=== PATIENT | male | born 1990 | race Caucasian/White ===

== ENCOUNTER 2020-02-17 10:05 | Emergency (ER) | payer OTHER ==
[2020-02-17 10:16] VITALS: TEMP 97.9; BMI 25.8
[2020-02-17] MEDS ORDERED: MAG HYDROX/ALH/SMC/DPHA/LIDO 240 ML MOUTHWASH MM ONE (10:51)
[2020-02-17] MEDS ORDERED: FAMOTIDINE 20 MG/50 ML IVPB 20 MG/50 ML MG IVPB ONE ×2 (10:51→10:55)
[2020-02-17] MEDS ORDERED: SODIUM CHLORIDE 1,000 ML IV STA (10:51)
--- NOTE | 2020-02-17 11:02 | PDOC ---
History of Present Illness - General Chief Complaint: Pain Stated Complaint: SORE THROAT Time Seen by Provider: 02/17/20 10:37 History Source: Patient - History of Present Illness Timing/Duration: reports: other (2 weeks ago) Past History - Medical History Allergies/Adverse Reactions: Allergies Allergy/AdvReac Type Severity Reaction Status Date / Time No Known Allergies Allergy Verified 02/17/20 10:19 Home Medications: Ambulatory Orders Famotidine [Pepcid] 20 mg PO BID #28 tablet 02/17/20 Famotidine [Pepcid] 20 mg PO BID #28 tablet 02/17/20 COPD: No GI Disorders: Yes (Ulcerative colitis) - Psycho-Social/Smoking History Smoking History: Never smoked Have you smoked in the past 12 months: No - Substance Abuse Hx (Audit-C & DAST Scrn) How often the patient has a drink containing alcohol: Never Score: In Men: 4 or > Positive; In Women: 3 or > Positive: 0 Screen Result (Pos requires Nsg. Audit-10AR): Negative In the last yr the pt used illegal drug/Rx for NonMed reason: No Score: Yes response is considered Positive: 0 Screen Result (Positive result requires Nsg. DAST-10): Negative Review of Systems - Review of Systems Constitutional: No: Chills, Fever ABD/GI: Yes: Blood Streaked Bowels, Diarrhea, Abdominal cramping. No: Nausea, Vomiting *Physical Exam - Vital Signs Last Vital Signs Temp Pulse Resp BP Pulse Ox 97.9 F 79 16 121/70 100 02/17/20 10:11 02/17/20 10:11 02/17/20 10:11 02/17/20 10:11 02/17/20 10:11 - Physical Exam General Appearance: Yes: Appropriately Dressed. No: Apparent Distress HEENT: positive: Normal Voice Neck: positive: Supple Respiratory/Chest: negative: Respiratory Distress Gastrointestinal/Abdominal: positive: Normal Bowel Sounds, Tender (minimal ttp diffusely to lower abd), Soft. negative: Distended, Guarding, Rebound Musculoskeletal: negative: CVA Tenderness Integumentary: positive: Dry, Warm Neurologic: positive: Fully Oriented, Alert, Normal Mood/Affect ED Treatment Course - LABORATORY CBC & Chemistry Diagram: 02/17/20 11:00 02/17/20 11:00 - RADIOLOGY Radiology Studies Ordered: Category Date Time Status ABDOMEN & PELVIS CT WITH CONTR [CT] Stat CT Scan 02/17/20 10:43 Ordered Medical Decision Making - Medical Decision Making 02/17/20 10:57 29-year-old male diagnosed with ulcerative colitis 4 years ago on endoscopy per patient, has never been on meds, no surgeries other than remote appy, follows w/ GI in the [place], GERD on omeprazole daily, here with 2 weeks of mostly constant lower abdominal pain with diarrhea, at times mixed with bright red blood and mucus. Also reports some dysphasia that started at some point consistent with his GERD but states omeprazole no longer relieving symptoms. Denies any nausea vomiting fever or chills see exam UC w/ lower abd pain w/ BRBPR Only surgery is remote appy Only meds is omeprazole currently Stable w/ minimal ttp to lower abd diffusely -sx control -labs -CT -anticipate dc w/ GI f/u 02/17/20 13:[address] with signs consistent with patient's known h/o IBD. On reassessment patient reports that his GERD symptoms improved with meds here. States he feels well enough to go home and will contact his GI doctor for fu rther evaluation and management Discharge - Discharge Information Problems reviewed: Yes Clinical Impression/Diagnosis: BRBPR (bright red blood per rectum) Abdominal pain Qualifiers: Abdominal location: unspecified location Qualified Code(s): R10.9 - Unspecified abdominal pain Condition: Improved Disposition: HOME - Additional Discharge Information Prescriptions: Famotidine [Pepcid] 20 mg PO BID #28 tablet Famotidine [Pepcid] 20 mg PO BID #28 tablet - Follow up/Referral Referrals: Serafin Mayfield [Primary Care Provider] - - Patient Discharge Instructions Patient Printed Discharge Instructions: Ulcerative Colitis Additional Instructions: Your labs were normal today and your CAT scan shows findings consistent with your history of ulcerative colitis Please make an appointment with your GI doctor for further evaluation and management If your symptoms worsen, return to the ER - Post Discharge Activity
[2020-02-17 11:29] LABS: BASO % 1.2 % (0-2.0); EOS % 9.7 % (0-4.5); HEMATOCRIT 48.4 % (35.4-49); HEMOGLOBIN 16.2 GM/dL (11.7-16.9); LYMPH % 35.2 % (8-40); MCH 27.7 pg (25.7-33.7); MCHC 33.4 g/dl (32.0-35.9); MEAN CELL VOLUME 82.9 fl (80-96); MONO % 11.1 % (3.8-10.2); NEUT % 42.8 % (42.8-82.8); PLATELET COUNT 272 K/MM3 (134-434); RBC 5.84 M/mm3 (4.00-5.60); WHITE BLOOD COUNT 5.8 K/mm3 (4.0-10.0)
[2020-02-17 11:53] LABS: ALBUMIN 4.1 g/dl (3.4-5.0); BILIRUBIN,TOTAL 0.9 mg/dL (0.2-1); BLOOD UREA NITROGEN 16.9 mg/dL (7-18); CALCIUM 9.5 mg/dL (8.5-10.1); CREATININE 1.1 mg/dL (0.55-1.3); TOT PROT 8.7 g/dl (6.4-8.2)
[2020-02-17 13:10] VITALS: BP 119/73; PULSE 74
== END 2020-02-17 13:10 | disposition home or self-care (01) ==
LOC: JER 10:05
PROC: 3E033NZ Introduction of Analgesics, Hypnotics, Sedatives into Peripheral Vein, Percutaneous Approach (ICD-10-PCS; principal; 2020-02-17)
PROC: 3E0337Z Introduction of Electrolytic and Water Balance Substance into Peripheral Vein, Percutaneous Approach (ICD-10-PCS; 2020-02-17)
DX: K62.5 Hemorrhage of anus and rectum (principal); R10.9 Unspecified abdominal pain
CPT/HCPCS: 36415; 74177-TC; 80053; 83690; 85025; 99285-25; Q9967

== ENCOUNTER 2020-04-19 19:08 | Emergency (ER) | payer OTHER ==
[2020-04-19 19:40] VITALS: BP 127/86; PULSE 85; TEMP 97.9; BMI 24.3
[2020-04-19] MEDS ORDERED: ONDANSETRON 4 MG/2 ML VIAL IVPUSH ONE (21:06)
[2020-04-19] MEDS ORDERED: KETOROLAC TROMETHAMINE 15 MG/ML VIAL IVPUSH ONE (21:06)
[2020-04-19] MEDS ORDERED: ONDANSETRON 4 MG/2 ML VIAL ONE (21:16)
[2020-04-19] MEDS ORDERED: KETOROLAC TROMETHAMINE 15 MG/ML VIAL ONE (21:16)
[2020-04-19 21:42] LABS: BASO % 0.9 % (0-2.0); EOS % 1.8 % (0-4.5); HEMATOCRIT 47.3 % (35.4-49); HEMOGLOBIN 15.4 GM/dL (11.7-16.9); LYMPH % 8.9 % (8-40); MCH 27.2 pg (25.7-33.7); MCHC 32.6 g/dl (32.0-35.9); MEAN CELL VOLUME 83.5 fl (80-96); MEAN PLT VOLUME 8.4 fl (7.5-11.1); MONO % 6.6 % (3.8-10.2); NEUT % 81.8 % (42.8-82.8); PLATELET COUNT 255 K/MM3 (134-434); RBC 5.66 M/mm3 (4.00-5.60); RDW 13.2 % (11.9-15.9); WHITE BLOOD COUNT 9.7 K/mm3 (4.0-10.0)
[2020-04-19 21:59] LABS: POTASSIUM 3.5 mmol/L (3.5-5.1)
[2020-04-19 22:02] LABS: ALBUMIN 4.4 g/dl (3.4-5.0); CALCIUM 9.3 mg/dL (8.5-10.1)
[2020-04-19 22:03] LABS: BLOOD UREA NITROGEN 16.5 mg/dL (7-18)
[2020-04-19 22:06] LABS: CREATININE 1.5 mg/dL (0.55-1.3)
[2020-04-19 22:07] LABS: BILIRUBIN,TOTAL 0.8 mg/dL (0.2-1); TOT PROT 8.4 g/dl (6.4-8.2)
[2020-04-19 23:47] LABS: EPI CELLS 7 /uL (0-25.1); HYALINE CASTS 1 /uL (0-3.1); URINE APPEARANCE CLEAR; URINE BACTERIA 33 /uL (0-1359); URINE BILIRUBIN NEGATIVE (NEGATIVE); URINE COLOR YELLOW; URINE GLUCOSE (UA) NEGATIVE (NEGATIVE); URINE KETONE NEGATIVE (NEGATIVE); URINE LEUK ESTERASE NEGATIVE (NEGATIVE); URINE NITRITE NEGATIVE (NEGATIVE); URINE PROTEIN TRACE (NEGATIVE); URINE RBC 146 /uL (0-23.9); URINE UROBILINOGEN 0.2 mg/dL (0.2-1.0); URINE WBC 8 /uL (0-25.8)
== END 2020-04-20 00:25 | disposition home or self-care (01) ==
LOC: JER 19:08
PROC: 3E0333Z Introduction of Anti-inflammatory into Peripheral Vein, Percutaneous Approach (ICD-10-PCS; principal; 2020-04-19)
PROC: 3E033GC Introduction of Other Therapeutic Substance into Peripheral Vein, Percutaneous Approach (ICD-10-PCS; 2020-04-19)
DX: N13.0 Hydronephrosis with ureteropelvic junction obstruction (principal); R10.32 Left lower quadrant pain
CPT/HCPCS: 36415; 76775-TC; 76870-TC; 80053; 81003; 83690; 85025; 87086; 99285-25